=== PATIENT | female | born 1965 | race Caucasian/White ===

== ENCOUNTER → 2016-11-07 | Outpatient (CLI) | payer BC ==
[~2016-11-07] MED LIST: CIPRO500 MG PO; FLAGYL500 MG PO; NORCO 7.5-3251 EACH PO
== END ==
LOC: EMI 09:47
DX: E22.9 Hyperfunction of pituitary gland, unspecified (principal)
CPT/HCPCS: 70553; A9577; J7050

== ENCOUNTER 2020-07-29 10:49 | Emergency (ER) | payer OTHER ==
[~2020-07-29] VITALS: Ht 170.2 cm; Wt 104.3 kg
[2020-07-29 13:44] LABS: HEMOGLOBIN 12.1 gm/dl (12.3-15.3); RED BLOOD COUNT 4.55 M/UL (4.00-5.10); WHITE BLOOD COUNT 5.9 K/UL (4.5-11.0)
[2020-07-29 14:09] LABS: BUN/CREATININE RATIO 23 (0-10)
== END 2020-07-29 17:37 | disposition home or self-care (01) ==
LOC: ER1 10:49
PROVIDERS: Physician Assistant Medical
DX: U07.1 COVID-19 (principal); I10 Essential (primary) hypertension
CPT/HCPCS: 71045; 80053; 85025; 99284; M0239

== ENCOUNTER → 2021-12-24 | Day surgery (SDC) | payer OTHER ==
[~2021-12-24] VITALS: Ht 170.2 cm; Wt 103.0 kg
[~2021-12-24] MED LIST changes: +ATORVASTATIN CA10 MG PO; +BENICAR20 MG PO; +CITALOPRAM HBR40 MG PO; +HYDROCHLOROTH12.5 M1 PO; +IBU600 MG PO; +MONTELUKAST SOD10 MG PO; +PROTONIX 40 MG40 M1 PO
== END | disposition home or self-care (01) ==
LOC: OR 06:02
DX: Z12.11 Encounter for screening for malignant neoplasm of colon (principal); I10 Essential (primary) hypertension; E78.5 Hyperlipidemia, unspecified; K21.9 Gastro-esophageal reflux disease without esophagitis; F32.A Depression, unspecified; E66.9 Obesity, unspecified; Z79.899 Other long term (current) drug therapy; Z87.891 Personal history of nicotine dependence; Z68.35 Body mass index [BMI] 35.0-35.9, adult
CPT/HCPCS: J2704

== ENCOUNTER → 2022-03-10 | Outpatient (CLI) | payer OTHER | LOC: KOH-I 11:15 | DX: M54.50 Low back pain, unspecified (principal); M25.562 Pain in left knee; M47.816 Spondylosis without myelopathy or radiculopathy, lumbar region | CPT/HCPCS: 72110; 73562 ==